=== PATIENT | female | born 1935 | race Caucasian/White ===

== ENCOUNTER → 2021-11-27 | Outpatient (CLI) | payer MEDICARE ==
[~2021-11-27] MED LIST: LIDOCAINE 1% MDV 20ML VIAL As Ordered ONE; MIDAZOLAM INJ 2MG/2ML VIAL (J2250 PER 1MG) As Ordered ONE; diphenhydrAMINE 50MG/ML VIAL (J1200) As Ordered ONE; fentaNYL 100 MCG/2 ML INJECTION As Ordered ONE
[2021-11-27 09:25] VITALS: BP 123/73
== END ==
LOC: EDSTATUS 07:30 → M IRPRO 07:35
PROVIDERS: ATTEND Radiology Diagnostic Radiology
DX: K81.0 Acute cholecystitis (principal)
CPT/HCPCS: 47490; 99152; 99153; C1729; C1769; J2250; J3010

== ENCOUNTER → 2022-01-13 | Outpatient (POV) | payer MEDICARE, BC ==
[~2022-01-13] VITALS: Ht 170.2 cm; Wt 61.3 kg
[2022-01-13 12:50] VITALS: BP 170/95
== END ==
LOC: M IRPOV 12:22
PROVIDERS: ATTEND Radiology Diagnostic Radiology
DX: Z43.4 Encounter for attention to other artificial openings of digestive tract (principal); K80.00 Calculus of gallbladder with acute cholecystitis without obstruction

== ENCOUNTER → 2022-02-26 | Outpatient (CLI) | payer MEDICARE, BC, OTHER ==
[~2022-02-26] MED LIST changes: +ADV250INH INH; +AMLO25TA PO; +ATOR1TAB21 PO; +CALC-218 PO; +ISOVUE-300 61% 50ML VIAL As Ordered ONE; +LEVO50TA5 PO; +NS 1,000 ML IV SCH; +cefTRIAXone SOD 1 GM in D5W MINI-BAG PLUS 50 ML IV ONE; +cefTRIAXone SOD 1GM VIAL (J0696 PER 250MG) As Ordered ONE
[2022-02-26 14:50] VITALS: BP 166/93
== END ==
LOC: M IRPRO 10:42
PROVIDERS: ATTEND Radiology Diagnostic Radiology
DX: K80.50 Calculus of bile duct without cholangitis or cholecystitis without obstruction (principal); Z79.899 Other long term (current) drug therapy
CPT/HCPCS: 47536; 99152; 99153; C1729; C1769; J0696; J2250; J3010; Q9967

== ENCOUNTER → 2022-08-11 | Outpatient (POV) | payer MEDICARE, BC, OTHER ==
[~2022-08-11] VITALS: Ht 175.3 cm; Wt 58.6 kg
[~2022-08-11] MED LIST changes: -ISOVUE-300 61% 50ML VIAL As Ordered ONE; -LIDOCAINE 1% MDV 20ML VIAL As Ordered ONE; -MIDAZOLAM INJ 2MG/2ML VIAL (J2250 PER 1MG) As Ordered ONE; -NS 1,000 ML IV SCH; -cefTRIAXone SOD 1 GM in D5W MINI-BAG PLUS 50 ML IV ONE; -cefTRIAXone SOD 1GM VIAL (J0696 PER 250MG) As Ordered ONE; -diphenhydrAMINE 50MG/ML VIAL (J1200) As Ordered ONE; -fentaNYL 100 MCG/2 ML INJECTION As Ordered ONE
[2022-08-11 10:40] VITALS: BP 160/93
== END ==
LOC: M IRPOV 10:17
PROVIDERS: ATTEND Radiology Diagnostic Radiology
DX: Z43.4 Encounter for attention to other artificial openings of digestive tract (principal)

== ENCOUNTER → 2022-09-02 | Outpatient (CLI) | payer MEDICARE, BC, OTHER ==
[~2022-09-02] MED LIST changes: +CEPHALEXIN 500 MG CAP As Ordered ONE; +CEPHALEXIN 500 MG CAP PO ONE; +ISOVUE-300 61% 50ML VIAL As Ordered ONE; +LIDOCAINE 1% MDV 20ML VIAL As Ordered ONE
[2022-09-02 13:03] VITALS: BP 124/78
== END ==
LOC: M IRPRO 10:38
PROVIDERS: ATTEND Radiology Diagnostic Radiology
DX: Z43.4 Encounter for attention to other artificial openings of digestive tract (principal); K80.20 Calculus of gallbladder without cholecystitis without obstruction
CPT/HCPCS: 47536; 87635; C1729; C1769; Q9967

== ENCOUNTER → 2022-10-13 | Outpatient (POV) | payer MEDICARE, BC, OTHER ==
[~2022-10-13] VITALS: Ht 170.2 cm; Wt 57.7 kg
[~2022-10-13] MED LIST changes: -CEPHALEXIN 500 MG CAP As Ordered ONE; -CEPHALEXIN 500 MG CAP PO ONE; -ISOVUE-300 61% 50ML VIAL As Ordered ONE; -LIDOCAINE 1% MDV 20ML VIAL As Ordered ONE
[2022-10-13 09:55] VITALS: BP 152/86
== END ==
LOC: M IRPOV 09:39
PROVIDERS: ATTEND Radiology Diagnostic Radiology
DX: Z43.4 Encounter for attention to other artificial openings of digestive tract (principal)

== ENCOUNTER → 2022-11-03 | Outpatient (POV) | payer MEDICARE, BC, OTHER ==
[~2022-11-03] VITALS: Ht 165.1 cm; Wt 54.5 kg
[2022-11-03 13:00] VITALS: BP 110/69
== END ==
LOC: M IRPOV 12:33
PROVIDERS: ATTEND Radiology Diagnostic Radiology
DX: K80.20 Calculus of gallbladder without cholecystitis without obstruction (principal)